=== PATIENT | male | born 1975 | race Caucasian/White ===

== ENCOUNTER 2020-04-02 14:41 | Emergency (ER) | payer BC ==
--- NOTE | 2020-04-02 15:34 | EDM.PDOC ---
ED HPI GENERAL MEDICAL PROBLEM - General Chief Complaint: Respiratory Problem Stated Complaint: CHEST PAIN Time Seen by Provider: 04/02/20 15:27 Source of Information: Reports: Patient, RN Notes Reviewed History Limitations: Reports: No Limitations - History of Present Illness INITIAL COMMENTS - FREE TEXT/NARRATIVE: 44-year-old gentleman presents to the emergency department a complaint of chest discomfort this is a chest discomfort for a couple of days he noticed when he was running on a treadmill today at about a 3 mile denise he started having some discomfort became short of breath his lips turned blue he does admit to having some anxiety and under a lot of stress as well. No diaphoresis no nausea vomiting no history of coronary artery disease - Related Data Allergies Allergy/AdvReac Type Severity Reaction Status Date / Time penicillin Allergy Rash Verified 04/02/20 15:14 Home Meds: Home Meds NK [No Known Home Meds] 10/20/14 [History] Past Medical History Cardiovascular History: Reports: High Cholesterol - Infectious Disease History Infectious Disease History: Reports: C-Difficile, Shingles - Past Surgical History HEENT Surgical History: Reports: None Musculoskeletal Surgical History: Reports: None Social & Family History - Tobacco Use Tobacco Use Status *Q: Former Tobacco User Used Tobacco, but Quit: Yes Month/Year Tobacco Last Used: 25 years - Caffeine Use Caffeine Use: Reports: Coffee - Recreational Drug Use Recreational Drug Use: No ED ROS GENERAL - Review of Systems Review Of Systems: See Below Constitutional: Reports: No Symptoms HEENT: Reports: No Symptoms Respiratory: Reports: Shortness of Breath Cardiovascular: Reports: Chest Pain GI/Abdominal: Reports: No Symptoms ED EXAM, GENERAL - Physical Exam Exam: See Below Exam Limited By: No Limitations General Appearance: Alert, WD/WN, No Apparent Distress Respiratory/Chest: No Respiratory Distress, Lungs Clear, Normal Breath Sounds, No Accessory Muscle Use, Chest Non-Tender Cardiovascular: Regular Rate, Rhythm, No Murmur GI/Abdominal: Soft, Non-Tender Course - Vital Signs Last Recorded V/S: Last Vital Signs Temp 97.8 F 04/02/20 15:12 Pulse 66 04/02/20 15:43 Resp 10 L 04/02/20 15:43 BP 127/83 04/02/20 15:43 Pulse Ox 99 04/02/20 15:43 - Orders/Labs/Meds Orders: Active Orders 24 hr Category Date Time Status Cardiac Monitoring [RC] .As Directed Care 04/02/20 15:31 Active EKG Documentation Completion [RC] ASDIRECTED Care 04/02/20 15:32 Active Chest 2V [CR] Stat Exams 04/02/20 15:32 Taken EKG 12 Lead [EK] Stat Ther 04/02/20 15:32 Ordered Labs: Laboratory Tests 04/02/20 04/02/20 Range/Units 15:44 15:44 WBC 4.0 L (4.5-11.0) K/uL RBC 4.91 (4.30-5.90) M/uL Hgb 15.8 H (12.0-15.0) g/dL Hct 44.9 (40.0-54.0) % MCV 91 (80-98) fL MCH 32 H (27-31) pg MCHC 35 (32-36) % Plt Count 211 (150-400) K/uL Neut % (Auto) 46 (36-66) % Lymph % (Auto) 38 (24-44) % [place] % (Auto) 14 H (2-6) % Eos % (Auto) 1 L (2-4) % Baso % (Auto) 0 (0-1) % Sodium 137 L (140-148) mmol/L Potassium 4.1 (3.6-5.2) mmol/L Chloride 103 (100-108) mmol/L Carbon Dioxide 28 (21-32) mmol/L Anion Gap 10.1 (5.0-14.0) mmol/L BUN 17 (7-18) mg/dL Creatinine 1.1 (0.8-1.3) mg/dL Est Cr Clr Drug Dosing 87.56 mL/min Estimated GFR (MDRD) > 60 (>60) Glucose 111 H (74-106) mg/dL Calcium 8.9 (8.5-10.1) mg/dL Total Bilirubin 0.9 (0.2-1.0) mg/dL AST 21 (15-37) U/L ALT 34 (12-78) U/L Alkaline Phosphatase 53 (46-116) U/L Troponin I < 0.017 (0.000-0.056) ng/mL Total Protein 6.9 (6.4-8.2) g/dL Albumin 3.8 (3.4-5.0) g/dL Globulin 3.1 (2.3-3.5) g/dL Albumin/Globulin Ratio 1.2 (1.2-2.2) Departure - Departure Time of Disposition: 16:29 Disposition: Home, Self-Care 01 Condition: Fair Clinical Impression: Atypical chest pain - Discharge Information Instructions: Nonspecific Chest Pain, Adult, [id number] Referrals: Estrada Cagle, HEMODIALYSIS CHARGE NURSE [Primary Care Provider] - Forms: ED Department Discharge Additional Instructions: Please followup with your primary care provider in 3-5 days if not better, please call return to the emergency department with worsening of symptoms. Sepsis Event Note (ED) - Evaluation Sepsis Screening Result: No Definite Risk - Focused Exam Vital Signs: Vital Signs Temp Pulse Resp BP Pulse Ox 04/02/20 15:43 66 10 L 127/83 99 04/02/20 15:12 97.8 F 64 16 134/76 99 04/02/20 15:03 97.8 F 64 16 134/76 99 - My Orders Last 24 Hours: My Active Orders 04/02/20 15:31 Cardiac Monitoring [RC] .As Directed 04/02/20 15:32 EKG Documentation Completion [RC] ASDIRECTED Chest 2V [CR] Stat EKG 12 Lead [EK] Stat - Assessment/Plan Last 24 Hours: My Active Orders 04/02/20 15:31 Cardiac Monitoring [RC] .As Directed 04/02/20 15:32 EKG Documentation Completion [RC] ASDIRECTED Chest 2V [CR] Stat EKG 12 Lead [EK] Stat Plan: Assessment Acuity = acute Site and laterality = atypical chest pain Etiology = probable underlying stress and anxiety Manifestations = none Location of injury = Home Lab values = CBC CMP troponin EKG all within normal limits chest x-ray I did review films myself I cannot appreciate any acute process, the official read from radiology is pending Plan Suspicious for underlying stress and anxiety producing atypical chest pain, recommend he follow-up with his primary care in 3 to 5 days if still having difficulty This note was dictated using [email or web address] voice recognition software please call with any questions on syntax or grammar.
[2020-04-02 15:44] VITALS: BP 127/83; PULSE 66
--- NOTE | 2020-04-03 09:44 | CR ---
CHEST: 2 view CLINICAL HISTORY:Chest pain COMPARISON:None FINDINGS: The heart size, pulmonary vascularity and hilar structures are normal. No infiltrate effusion or pneumothorax is seen. IMPRESSION: No acute cardiopulmonary process.
== END 2020-04-02 16:42 | disposition home or self-care (01) ==
LOC: JP.ED 14:41
DX: R07.89 Other chest pain (principal); Z87.891 Personal history of nicotine dependence; Z88.0 Allergy status to penicillin
CPT/HCPCS: 36415; 71046; 71046-26; 80053; 84484; 85025; 93005; 93010; 99285-25